=== PATIENT | male | born 1960 | race Two or more races ===

== ENCOUNTER 2020-07-17 05:25 | Inpatient (IN) | payer SELFPAY ==
[~2020-07-17] VITALS: Ht 180.3 cm; Wt 91.6 kg
[2020-07-17] MEDS ORDERED: cloNIDine HCL 0.1 MG TAB PO ONE (05:45)
[2020-07-17 06:51] LABS: Albumin 3.8 g/dL (3.4-5.0); Calcium 8.7 mg/dL (8.5-10.1)
[2020-07-17 06:53] LABS: Basophils # (auto) 0.1 10 ^3/uL (0-0.2); Basophils % (auto) 0.9 % (0.0-2.0); Eosinophils # (auto) 0.2 10 ^3/uL (0-0.8); Eosinophils % (auto) 1.7 % (0.0-7.0); Hematocrit 53.7 % (41.0-53.0); Hemoglobin 17.9 g/dL (13.5-17.5); INR 0.99 (0.9-1.15); Lymphocytes # (auto) 1.3 10 ^3/uL (0.4-5.4); Lymphocytes % (auto) 13.5 % (10.0-50.0); Mean Corpuscular Hemoglobin 30.2 pg (28.0-32.0); Mean Corpuscular Hgb Conc. 33.3 g/dL (32.0-36.0); Mean Corpuscular Volume 90.8 fL (80.0-100.0); Monocytes # (auto) 0.8 10 ^3/uL (0-1.3); Monocytes % (auto) 7.9 % (0.0-12.0); Neutrophils # (auto) 7.3 10 ^3/uL (1.6-8.6); Nucleated Red Blood Cells % 0.1 %; Partial Thromboplastin Time 30.7 sec (23.0-31.2); Platelet Count (auto) 215 10^3/uL (140-450); Red Blood Cells 5.92 10^6/uL (4.5-5.90); Red Cell Distribution Width 14.7 % (11.8-14.3); White Blood Cell 9.7 10^3/uL (4.4-10.8)
[2020-07-17 06:58] LABS: BUN/Creatinine Ratio 19.1; Bilirubin, Total 0.6 mg/dL (0.2-1.0); Total Protein 7.6 g/dL (6.4-8.2)
[2020-07-17] MEDS ORDERED: ASPirin 81 mg TAB PO ONE (07:15)
[2020-07-17] MEDS ORDERED: FUROSEMIDE 40 MG/4 ML VIAL IV ONE (09:15)
[2020-07-17] MEDS: ASPirin 81 mg TAB PO SCH (09:44)
[2020-07-17] MEDS: ENALAPRIL MALEATE 2.5 MG TAB PO SCH (09:44)
[2020-07-17] MEDS: CARVEDILOL 3.125 MG TAB PO SCH ×2 (09:44→21:59)
[2020-07-17] MEDS ORDERED: CLOPIDOGREL BISULFATE 75 MG TAB PO SCH (10:00)
[2020-07-17] MEDS ORDERED: LACTATED RINGER'S 1,000 ML IV ONE (12:15)
[2020-07-17] MEDS ORDERED: NITROGLYCERIN 0.4 MG SL TAB SL PRN ×4 (12:15→17:00)
[2020-07-17] MEDS ORDERED: MORPHINE SULF INJ 2 MG/ML SYRINGE 1ML IV PRN ×5 (12:15→17:00)
[2020-07-17 12:59] LABS: Cholesterol 236 mg/dL (< 200); HDL Cholesterol 59 mg/dL (40-59); LDL Cholesterol 165 mg/dL (< 100); Triglycerides 125 mg/dL (< 150)
[2020-07-17] MEDS ORDERED: CALC-386 PO (13:20)
[2020-07-17] MEDS ORDERED: CHOL20007 PO (13:20)
[2020-07-17] MEDS ORDERED: MULT-1018 PO (13:20)
[2020-07-17] MEDS ORDERED: ENAL10TA13 PO (13:20)
--- NOTE | 2020-07-17 15:00 | NUR ---
PATIENT ARRIVED TO UNIT PATIENT ALERT AND ORIENTED X4 PATIENT ORIENTED TO UNIT STAFF CALL LIGHT AND POC PATIENT VERBALIZED UNDERSTANDING. PATIENT DENIES ALL CP AND SOB AT THIS TIME. BED IN LOWEST LOCKED POSITION CALL LIGHT WITHIN REACH WILL CONTINUE TO MONITOR
[2020-07-17 17:00] VITALS: BP 126/87
[2020-07-17] MEDS ORDERED: SODIUM CHLORIDE 0.9% 1,000 ML IV SCH (17:00)
[2020-07-17] MEDS ORDERED: ENOXAPARIN SOD 40 MG/0.4 ML SYRINGE SC ONE ×2 (17:00)
[2020-07-17] MEDS ORDERED: ATORVASTATIN 20 MG TAB PO ONE ×2 (17:00)
[2020-07-17] MEDS ORDERED: MORPHINE SULFATE 4 MG/ML SYR/VIAL IV PRN (17:00)
[2020-07-17] MEDS ORDERED: ONDANSETRON HCL 4 MG/2 ML VIAL IV PRN (17:00)
[2020-07-17] MEDS ORDERED: ACETAMINOPHEN 325 MG TAB PO PRN (17:00)
[2020-07-17] MEDS ORDERED: HYDROcodone-ACET 5/325MG TAB PO PRN ×2 (17:00)
[2020-07-17] MEDS ORDERED: TEMAZEPAM 15 MG CAP PO PRN (17:00)
[2020-07-17] MEDS ORDERED: DOCUSATE SOD 100 MG CAP PO PRN (17:00)
[2020-07-17] MEDS ORDERED: ALUM & MAG HYDROX-SIMETH LIQ(MAALOX) 30 ML PO PRN (17:00)
[2020-07-17] MEDS: SODIUM CHLORIDE 0.9% 1,000 ML IV SCH (17:20)
[2020-07-17] MEDS: DOXYCYCLINE 100MG/250ML 250 ML IV SCH (17:40)
[2020-07-17] MEDS: FUROSEMIDE 20 MG/2 ML VIAL IV SCH (17:41)
[2020-07-17] MEDS ORDERED: IPRATROPIUM BROM 0.5 MG/2.5ML INH SOL NEB PRN (18:00)
[2020-07-17] MEDS ORDERED: IPRATROPIUM BROM 0.5 MG/2.5ML INH SOL NEB SCH (18:00)
--- NOTE | 2020-07-17 18:04 | NUR ---
UA, URINE BACTERIAL CULTURE AND COVID SWAB OBTAINED AND SENT TO LAB
--- NOTE | 2020-07-17 19:30 | NUR ---
Opening Shift Note Assumed care of patient, awake and alert. Patient sitting on the chair talking to his family. No S/S of distress/SOB or pain. Safety measures maintained by keeping the bed locked in lowest position, 2 side rails up, personal items and call light within reach. Instructed on POC and to call for assist PRN, will continue to monitor for changes Q1hr and PRN.
[2020-07-17 19:45] LABS: Urine WBC None Seen /hpf (0 - 3)
[2020-07-17 20:20] LABS: Urine Bacteria NONE SEEN /hpf (None Seen); Urine Blood Negative /uL (Negative); Urine Mucus FEW (None Seen); Urine Specific Gravity 1.009 (1.001-1.035)
[2020-07-17 20:27] LABS: Alcohol, Urine < 3.0 mg/dL (0-10); Amphetamine Screen, Urine NEGATIVE (NEGATIVE); Barbiturate Scree,Urine NEGATIVE (NEGATIVE); Benzodiazephine Screen, Urine NEGATIVE (NEGATIVE); Cannabinoid Screen, Urine NEGATIVE (NEGATIVE); Cocaine Screen, Urine NEGATIVE (NEGATIVE); Opiate Scree,Urine NEGATIVE (NEGATIVE); Phencyclidine Screen, Urine NEGATIVE (NEGATIVE)
[2020-07-17 21:23] VITALS: BP 126/87
[2020-07-17] MEDS: ATORVASTATIN 20 MG TAB PO SCH (21:53)
[2020-07-17] MEDS ORDERED: ATORVASTATIN 20 MG TAB PO SCH (22:00)
[2020-07-17 22:23] VITALS: BP 116/78
--- NOTE | 2020-07-17 23:10 | NUR ---
AT BEDSIDE TO ASSESS PT FOR PRN TX. NO TX INDICATED AT THIS TIME. BS ARE CLEAR T/O, POX 93-94% ON RA. HR 80S. RR16-18. PT AWARE I CAN BE PAGED AT ANY TIME HE FEELS HE IS HAVING ANY DIFFICULTY BREATHING. RT NAME AND PAGER ASSIGNMENT WRITTEN ON PTS ROOM BOARD.
[2020-07-18 05:19] VITALS: BP 131/93
[2020-07-18] MEDS: DOXYCYCLINE 100MG/250ML 250 ML IV SCH (05:28)
[2020-07-18] MEDS: FUROSEMIDE 20 MG/2 ML VIAL IV SCH ×2 (05:30→17:43)
--- NOTE | 2020-07-18 05:50 | NUR ---
IV insertion IV access obtained, via clean sterile technique by inserting 22 gauge catheter at after 2 attempt(s). IV secured properly. No trauma to site. Patient tolerated well.
--- NOTE | 2020-07-18 06:37 | NUR ---
Respiratory note: PT ASSESSED. PT FOUND ON ROOM AIR HR 100, RR 18, SP02 96%. PT AWAKE ALERT AND RESPONSIVE. PT IN NO DISTRESS AT THIS TIME. NO INDICATION FOR MED NEB AT THIS TIME. PT AWARE TO HAVE RT PAGED FOR SOB.
--- NOTE | 2020-07-18 08:00 | NUR ---
OPENING SHIFT NOTE ASSUMED CARE OF PATIENT AWAKE AND ALERT. NO S/S OF DISTRESS NOTED OR COMPLAINTS OF PAIN. PATIENT UPDATED ON POC FOR THE DAY AND ALL QUESTIONS ANSWERED. BED IS IN LOWEST, LOCKED POSITION WITH SIDE RAILS UP X2 AND CALL LIGHT WITHIN REACH. WILL CONTINUE TO MONITOR Q1H AND PRN.
[2020-07-18] MEDS ORDERED: ADENOSINE 78 MG in GIVE UN-DILUTED 0 ML IV STA (08:09)
[2020-07-18 09:00] VITALS: BP 121/89
[2020-07-18] MEDS: ASPirin 81 mg TAB PO SCH (09:41)
[2020-07-18] MEDS: SODIUM CHLORIDE 0.9% 1,000 ML IV SCH (09:41)
[2020-07-18] MEDS: ENOXAPARIN SOD 40 MG/0.4 ML SYRINGE SC SCH (09:42)
[2020-07-18] MEDS: CARVEDILOL 3.125 MG TAB PO SCH ×2 (09:42→21:53)
[2020-07-18] MEDS: ENALAPRIL MALEATE 2.5 MG TAB PO SCH (09:42)
[2020-07-18] MEDS ORDERED: ENOXAPARIN SOD 40 MG/0.4 ML SYRINGE SC SCH (10:00)
[2020-07-18 10:09] VITALS: BP 138/67
[2020-07-18 13:00] VITALS: BP 126/69
--- NOTE | 2020-07-18 15:02 | NUR ---
SOFTWARE DATABASE ARCHITECT AT BEDSIDE ANG GRULLON AT BEDSIDE UPDATING PATIENT ON POC INCLUDING SCHEDULED [facility] TOMORROW. PATIENT VERBALIZED UNDERSTANDING. WILL CONTINUE CARE.
[2020-07-18 17:00] VITALS: BP 116/91
--- NOTE | 2020-07-18 19:30 | NUR ---
Opening Shift Note Assumed care of patient, awake and alert. Patient sitting up in bed. No S/S of distress/SOB or pain. Safety measures maintained by keeping the bed locked in lowest position, 2 side rails up, personal items and call light within reach. Instructed on POC and to call for assist PRN, will continue to monitor for changes Q1hr and PRN.
[2020-07-18] MEDS: ATORVASTATIN 20 MG TAB PO SCH (21:54)
[2020-07-18 22:00] VITALS: BP 122/122
--- NOTE | 2020-07-18 22:23 | NUR ---
Respiratory note: PT SEEN AND ASSESSED FOR PRN MED NEB TX 2223. TX NOT INDICATED AT THIS TIME. HR 97 RR 18 SP02 93% ON ROOM AIR. PT IS CURRENTLY SLEEPING DISPLAYING NO SIGNS OF RESPIRATORY DISTRESS.
[2020-07-19] MEDS: SODIUM CHLORIDE 0.9% 1,000 ML IV SCH ×2 (02:20→18:26)
[2020-07-19] MEDS: FUROSEMIDE 20 MG/2 ML VIAL IV SCH ×2 (05:28→18:00)
[2020-07-19 06:00] VITALS: BP 130/92
[2020-07-19 06:08] LABS: Basophils # (auto) 0.1 10 ^3/uL (0-0.2); Eosinophils # (auto) 0.2 10 ^3/uL (0-0.8); Eosinophils % (auto) 1.5 % (0.0-7.0); Lymphocytes # (auto) 1.6 10 ^3/uL (0.4-5.4); Mean Corpuscular Hgb Conc. 33.7 g/dL (32.0-36.0); Neutrophils # (auto) 7.8 10 ^3/uL (1.6-8.6); Red Blood Cells 5.85 10^6/uL (4.5-5.90)
[2020-07-19 06:11] LABS: Basophils % (auto) 1.4 % (0.0-2.0); Hematocrit 52.3 % (41.0-53.0); Hemoglobin 17.6 g/dL (13.5-17.5); Lymphocytes % (auto) 14.2 % (10.0-50.0); Mean Corpuscular Hemoglobin 30.1 pg (28.0-32.0); Mean Corpuscular Volume 89.4 fL (80.0-100.0); Monocytes # (auto) 1.3 10 ^3/uL (0-1.3); Monocytes % (auto) 11.7 % (0.0-12.0); Neutrophils % (auto) 71.2 % (37.0-80.0); Nucleated Red Blood Cells % 0.1 %; Platelet Count (auto) 211 10^3/uL (140-450); Red Cell Distribution Width 14.2 % (11.8-14.3); White Blood Cell 10.9 10^3/uL (4.4-10.8)
[2020-07-19 06:28] LABS: INR 1.05 (0.9-1.15); Partial Thromboplastin Time 30.8 sec (23.0-31.2); Potassium 4.2 mmol/L (3.5-5.1)
[2020-07-19 06:39] LABS: BUN/Creatinine Ratio 21.3; Calcium 8.9 mg/dL (8.5-10.1)
--- NOTE | 2020-07-19 07:45 | NUR ---
Opening Shift Note Assumed care of patient, awake and alert. No S/S of distress/SOB or pain. Instructed on POC and to call for assist PRN, will continue to monitor for changes Q1hr and PRN. Bed locked in lowest position with two side rails up and call light in reach.
[2020-07-19 08:00] VITALS: BP 122/91
[2020-07-19 09:00] VITALS: BP 122/91
--- NOTE | 2020-07-19 09:05 | NUR ---
Respiratory note: WENT TO ROOM TO ASSESS PATIENT. PT NOT IN ROOM, AT A PROCEDURE AT THIS TIME.
[2020-07-19] MEDS ORDERED: fentaNYL CITRATE 100 MCG/2 ML VL ONE (09:50)
[2020-07-19] MEDS ORDERED: VERAPAMIL 2.5MG/ML INJ 2ML VIAL IV ONE (09:50)
[2020-07-19] MEDS ORDERED: ANGIOMAX 250 MG VIAL IV ONE (09:50)
[2020-07-19] MEDS ORDERED: HEPARIN SODIUM (PORCINE) 5000 UNITS/ML 1ML VIAL ONE (09:50)
[2020-07-19] MEDS ORDERED: HEPARIN IN NS 1000Units/500mL 0 ML ONE (09:51)
[2020-07-19] MEDS ORDERED: LIDOCAINE 2%HCL (LOCAL ANESTH.) INJ 20ML MDV ONE (09:51)
[2020-07-19] MEDS ORDERED: SODIUM CHL 0.9% 0 ML ONE (09:51)
[2020-07-19] MEDS ORDERED: MIDAZOLAM HCL 1MG/1ML-2 ML VIAL ONE (09:51)
[2020-07-19] MEDS ORDERED: IODIXANOL 320MG/ML 100ML BTL IV ONE (09:59)
[2020-07-19] MEDS: ENOXAPARIN SOD 40 MG/0.4 ML SYRINGE SC SCH (10:00)
--- NOTE | 2020-07-19 10:45 | NUR ---
Patient brought to recovery via bed, report received from Jazmyne RN and Horacio RN. Patient is AO x 4, NAD noted and denies pain at this time. VS WNL of baseline. Right radial site is benign, no s/s of bleeding or hematoma formation. Vasc Band is in place, positive circulation, movement and sensation noted to BUE. Patient verbalized understanding to post-procedure care instructions.
--- NOTE | 2020-07-19 11:00 | NUR ---
Patient is awake in bed, breaths are even and unlabored. NAD noted. Right radial site remains unchanged.
--- NOTE | 2020-07-19 11:17 | NUR ---
Report given to primary RNDiamond.
--- NOTE | 2020-07-19 11:30 | NUR ---
Primary RNDiamond at bedside to witness right radial site benign, no s/s of bleeding or hematoma formation. Patient taken up to telemetry unit via bed by SAMEERA Fields and SAMEERA Adam. VSS and are WNL of baseline. NAD noted upon departure. Care endorsed to SAMEERA Fields.
[2020-07-19] MEDS: ENALAPRIL MALEATE 2.5 MG TAB PO SCH (11:46)
[2020-07-19] MEDS: CARVEDILOL 3.125 MG TAB PO SCH ×2 (11:47→22:01)
[2020-07-19] MEDS: ASPirin 81 mg TAB PO SCH (11:47)
[2020-07-19 13:00] VITALS: BP 124/84
[2020-07-19 16:47] VITALS: BP 95/68
--- NOTE | 2020-07-19 18:00 | NUR ---
PATIENTS LASIX HELD FOR DECREASED BP 99/70 DR GALL[address]O [address] GALLARDO HOLD LASIX THIS 1800 DOSE.
--- NOTE | 2020-07-19 20:10 | NUR ---
DRESSING APPLIED TO RIGHT RADIAL SITE. PATIENT IS S/P [facility]. PATIENT REMOVED PREVIOUS DRESSING. RIGHT WRIST SITE IS BENIGN, NO BRUISING/BLEEDING/HEMATOMA FORMATION NOTED. PULSES STRONG BILATERALLY. STERILE GAUZE 4X4 APPLIED TO SITE WITH TEGADERM DRESSING. INSTRUCTED PATIENT NOT TO LIFT, PUSH, PULL, OR SHIFT WEIGHT WITH RIGHT ARM/WRIST, PATIENT VERBALIZED UNDERSTANDING. INSTRUCTED PATIENT NOT TO REMOVE DRESSING FOR AT LEAST 24 HOURS.
[2020-07-19 22:00] VITALS: BP 121/77
[2020-07-19] MEDS: ATORVASTATIN 20 MG TAB PO SCH (22:01)
[2020-07-20 05:00] VITALS: BP 121/94
[2020-07-20] MEDS: FUROSEMIDE 20 MG/2 ML VIAL IV SCH (06:27)
[2020-07-20] MEDS: SODIUM CHLORIDE 0.9% 1,000 ML IV SCH (06:29)
[2020-07-20 08:50] VITALS: BP 115/86
[2020-07-20] MEDS: ENOXAPARIN SOD 40 MG/0.4 ML SYRINGE SC SCH (09:10)
[2020-07-20] MEDS: ASPirin 81 mg TAB PO SCH (09:10)
[2020-07-20] MEDS: CARVEDILOL 3.125 MG TAB PO SCH (09:11)
[2020-07-20] MEDS: ENALAPRIL MALEATE 2.5 MG TAB PO SCH (09:12)
[2020-07-20 09:48] VITALS: BP 115/86
--- NOTE | 2020-07-20 09:52 | NUR ---
I faxed life vest order to [facility].
--- NOTE | 2020-07-20 12:40 | NUR ---
Patty DEALER ACCOUNT MANAGER at bedside stated patient is cleared from cardiac standpoint and follow up [facility] for life vest as outpatient. Informed Dr. Flynn, patient can DC home today.
--- NOTE | 2020-07-20 12:45 | NUR ---
Patient received a CD from Patty BONNER
[2020-07-20 13:00] VITALS: BP 110/57
--- NOTE | 2020-07-20 13:59 | NUR ---
assessment Patient is a 60 year old male who is alert and oriented. Patients cognitive abilities are intact. Prior to admission patient lived home with his and family and functioned independently. Patient informed me he is able to care for his own ADLs. Per patient he will return home to his prior living arrangements post discharge and family will transport him home. Patient has no insurance. Patient has been assessed by Ki Johns of [facility]. Patient may qualify for [employer] if he brings back all her paperwork. I have provided patient with resources for [facility], Dr. [place], and [facility] urgent care for follow up visits. I have provided patient with a prescription card from community assistance program. Patient has no post discharge needs at this time. I informed patient he has a right to speak to a social welfare administrator regarding all care. I informed patient he has a right to participate in any and all discharge planning. Patient does not have a POA and advanced directive. I have offered patient information on POA and advanced directives. I informed the patient the advantages and benefits of having an Advanced Directive. Patient verbalized understanding and agreed to discharge plan. Addendum: 07/20/20 at 1401 by Lesly HAMLIN Amended: Links added.
--- NOTE | 2020-07-20 14:01 | NUR ---
Discharge instructions given as ordered. Encourage to follow up with PMD as instructed. All questions and concerns addressed. Patient verbalized understanding. Medication reconciliation form completed and copy given to patient. Home medications held in Pharmacy returned to patient, and needed vaccines given. IV removed with catheter intact, pressure dressing applied. Telemetry unit returned to ICU. Patient taken to vehicle via wheelchair with all personal belongings, accompanied by staff and family member. No distress noted at time of departure.
== END 2020-07-20 14:00 | disposition home or self-care (01) | DRG 287 ==
LOC: ER 05:25 → TELE 05:26 → TELE-CENTR 14:54
PROVIDERS: ADMIT Hospitalist; ATTEND Family Medicine
PROC: 4A023N7 Measurement of Cardiac Sampling and Pressure, Left Heart, Percutaneous Approach (ICD-10-PCS; principal; 2020-07-19)
PROC: B2111ZZ Fluoroscopy of Multiple Coronary Arteries using Low Osmolar Contrast (ICD-10-PCS; 2020-07-19)
PROC: B2151ZZ Fluoroscopy of Left Heart using Low Osmolar Contrast (ICD-10-PCS; 2020-07-19)
DX: I11.0 Hypertensive heart disease with heart failure (principal); J84.9 Interstitial pulmonary disease, unspecified; E66.9 Obesity, unspecified; I50.43 Acute on chronic combined systolic (congestive) and diastolic (congestive) heart failure; I42.9 Cardiomyopathy, unspecified; E78.00 Pure hypercholesterolemia, unspecified; E78.5 Hyperlipidemia, unspecified; F17.210 Nicotine dependence, cigarettes, uncomplicated; I16.0 Hypertensive urgency; J44.9 Chronic obstructive pulmonary disease, unspecified; Z20.828 Contact with and (suspected) exposure to other viral communicable diseases; Z68.28 Body mass index [BMI] 28.0-28.9, adult; Z82.49 Family history of ischemic heart disease and other diseases of the circulatory system; Z91.81 History of falling; Z90.49 Acquired absence of other specified parts of digestive tract; R00.0 Tachycardia, unspecified
CPT/HCPCS: 36415; 71045; 78452; 80048; 80053; 80061; 80307; 81001; 83036; 83880; 84484; 85025; 85610; 85730; 86850; 86900; 86901; 87040; 87086; 93017; 93306; 96365; 96375; 99152; G0378; J0153; J2250; J3490; Q9967